=== PATIENT | female | born 1995 | race Caucasian/White ===

== ENCOUNTER 2018-05-14 14:53 | Emergency (ER) | payer OTHER ==
[~2018-05-14] VITALS: Ht 157.5 cm; Wt 58.0 kg
[2018-05-14 14:55] VITALS: BP 126/70
== END 2018-05-14 15:55 | disposition left against medical advice (07) ==
LOC: ER 15:28
DX: R10.32 Left lower quadrant pain (principal); Z53.21 Procedure and treatment not carried out due to patient leaving prior to being seen by health care provider